=== PATIENT | male | born 1995 | race Caucasian/White ===

== ENCOUNTER 2017-02-18 02:45 | Emergency (ER) | payer OTHER ==
[2017-02-18 05:33] VITALS: BP 142/90
== END 2017-02-18 05:33 | disposition home or self-care (01) ==
LOC: ED 02:45
DX: R50.9 Fever, unspecified (principal); R11.10 Vomiting, unspecified; R19.7 Diarrhea, unspecified; R51 Headache; M79.1 Myalgia
CPT/HCPCS: J1885